=== PATIENT | female | born 1955 | race Caucasian/White ===

== ENCOUNTER → 2023-08-17 06:55 | Outpatient (REF) | payer OTHER, SELFPAY | LOC: MRI 3T 06:55 | PROVIDERS: ATTENDING PHYSICIAN Physician Assistant; FAMILY PHYSICIAN Family Medicine | DX: M54.14 Radiculopathy, thoracic region (principal) | CPT/HCPCS: 72146 ==

== ENCOUNTER → 2023-09-24 07:03 | Outpatient (REF) | payer OTHER, SELFPAY | LOC: WDC 07:03 | PROVIDERS: ATTENDING PHYSICIAN Surgery; FAMILY PHYSICIAN Family Medicine | DX: Z12.31 Encounter for screening mammogram for malignant neoplasm of breast (principal) | CPT/HCPCS: 77063; 77067 ==

== ENCOUNTER → 2023-10-12 07:52 | Outpatient (REF) | payer OTHER, SELFPAY | LOC: WDC 07:52 | PROVIDERS: ATTENDING PHYSICIAN Surgery | DX: R92.2 Inconclusive mammogram (principal) | CPT/HCPCS: 76641 ==

== ENCOUNTER → 2023-12-27 12:51 | Outpatient (REF) | payer OTHER, SELFPAY | LOC: RAD 12:51 | PROVIDERS: ATTENDING PHYSICIAN Family Medicine | DX: M79.89 Other specified soft tissue disorders (principal) | CPT/HCPCS: 93970 ==

== ENCOUNTER → 2023-12-31 09:00 | Outpatient (REF) | payer SELFPAY | LOC: HWRAD 09:00 | PROVIDERS: ATTENDING PHYSICIAN Internal Medicine Cardiovascular Disease; FAMILY PHYSICIAN Family Medicine | DX: E78.00 Pure hypercholesterolemia, unspecified (principal) | CPT/HCPCS: 75571 ==

== ENCOUNTER → 2024-01-12 12:36 | Outpatient (REF) | payer OTHER, SELFPAY | LOC: PAVMRI 12:36 | PROVIDERS: ATTENDING PHYSICIAN Psychiatry & Neurology Neurology; FAMILY PHYSICIAN Family Medicine | DX: G43.711 Chronic migraine without aura, intractable, with status migrainosus (principal) | CPT/HCPCS: 70553; A9575 ==

== ENCOUNTER → 2024-03-06 07:31 | Outpatient (REF) | payer OTHER, SELFPAY | LOC: HWRAD 07:31 | PROVIDERS: ATTENDING PHYSICIAN Internal Medicine Hematology & Oncology; FAMILY PHYSICIAN Student in an Organized Health Care Education/Training Program | DX: M81.0 Age-related osteoporosis without current pathological fracture (principal) | CPT/HCPCS: 77080 ==

== ENCOUNTER → 2024-09-29 07:06 | Outpatient (REF) | payer OTHER, SELFPAY | LOC: WDC 07:06 | PROVIDERS: ATTENDING PHYSICIAN Surgery; FAMILY PHYSICIAN Student in an Organized Health Care Education/Training Program | DX: Z12.31 Encounter for screening mammogram for malignant neoplasm of breast (principal); Z85.3 Personal history of malignant neoplasm of breast; C50.412 Malignant neoplasm of upper-outer quadrant of left female breast | CPT/HCPCS: 77063; 77067 ==

== ENCOUNTER 2025-01-04 21:34 | Emergency (ER) | payer OTHER, SELFPAY ==
[2025-01-04 21:35] VITALS: BP 153/92
[2025-01-04 21:49] LABS: Hematocrit 37.5 % (37.0-47.0); Hemoglobin 12.6 g/dL (12.0-16.0); Mean Corp Hgb Conc. 33.6 g/dL (33.0-37.0); Mean Corpuscular Volume 89.5 fL (81.0-99.0); Nucleated Red Blood Cells % 0 %; Platelet Count 254 10^3/uL (130-400); Red Cell Dist. Width 12.5 % (11.5-14.5)
[2025-01-04 22:11] LABS: ALT (SGPT) 22 U/L (0-35); AST (SGOT) 30 U/L (14-36); Albumin 4.2 g/dl (3.5-5.0); Alkaline Phosphatase 62 U/L (38-126); Blood Urea Nitrogen 18 mg/dl (7-17); Calcium 9.5 mg/dl (8.4-10.2); Carbon Dioxide 25 mmol/L (22-30); Chloride 107 mmol/L (98-107); Glucose 127 mg/dl (70-99); Potassium 3.8 mmol/L (3.5-5.1); Sodium 139 mmol/L (135-145); Total Protein 7.3 g/dl (6.3-8.2); eGFR > 60.00
[2025-01-04 23:05] VITALS: BP 148/80
[2025-01-04 23:06] VITALS: BMI 27.1
[2025-01-04] MEDS: OMNIPAQUE 50 ML PO (23:50)
[2025-01-04] MEDS: NSS 1000 IV (23:52)
[2025-01-05 00:36] VITALS: BP 163/75
--- NOTE | 2025-01-05 00:56 | ED.GENMED ---
History of Present Illness
General
Chief Complaint: Abdominal Symptoms
Source: patient and spouse
Exam Limitations: none
Time Seen by Provider: 01/04/25 23:06
Nursing documentation reviewed up to this point in time: agreed with
History of Present Illness
History of Present Illness:
69-year-old female past medical history of previous C. difficile 2 years ago. Being treated for diverticulitis with ciprofloxacin and Flagyl presenting to the emergency department today with concerns of nausea diarrhea abdominal pain progressing
over the past week. Started taking Augmentin last week for possible sinus infection. 2 days into the treatment she noticed diarrhea and abdominal cramping which has been persisting. She has had very loose bowel movements over the past few days.
Denies any fevers chest pain or shortness of breath. Nausea but no vomiting.
Past History
Past History
ED Past Medical History: Hypothyroidism (Status post radioablation for Graves' disease ), Other (Migraine headaches ) and Other (Irritable bowel syndrome: Diverticulosis, anemia )
Social History
Tobacco: Non-smoker
Alcohol: Occasional
Personal:
Living: with family
Family History
Family History: Negative Diabetes, Hypertension, Early CAD, Asthma or Cancer
Review of Systems
Review of Systems
Allergies reviewed?: Yes
All Other Systems: ROS reviewed and negative except as documented in HPI and ROS
Phy Exam
Physical Exam
Physical Exam:
GENERAL: Alert , in no apparent distress
EYE: pupils equal and reactive
NECK: Supple, no significant adenopathy.
ENT: o/p clr, mmm.
CARDIAC: Regular rate and rhythm .
LUNGS: Clear breath sounds bilaterally, no acute respiratory distress, no wheezes/rales/rhonchi
ABDOMEN: Left-sided abdominal pain to palpation
NEUROLOGICAL: Alert and oriented, no focal neuro deficits
SKIN: Warm and dry, skin intact.
MUSCULOSKELETAL: No edema, well perfused.
PSYCH: Normal and appropriate interaction.
Course
Orders/Labs/Results
Orders:
Orders
01/04/25 21:43
Complete Blood Count/With Diff Urgent
Comprehensive Metabolic Panel Urgent
01/04/25 23:39
Urinalysis Reflex To Culture Urgent
Date Specimen was Collected: 01/05/25
Time Specimen was Collected: 00:40
Iohexol [Omnipaque] See Protocol PO NOW STA
01/04/25 23:40
0.9% Sodium Chloride 1000 ml [Nss] 1,000 ml IV BOLUS
01/05/25
CT Abd/pel W Iv And Oral Contr Urgent
Reason For Exam: llq pain
01/05/25 00:56
C DIFF [C difficile Antigen & Toxins] Urgent
[facility]OC Source: Feces/Stool
Specimen Description:
Stool Culture Urgent
[facility] Source: Feces/Stool
Specimen Description:
Abnormal Lab Results
01/04/25
21:43
RBC 4.19 L 10^6/uL
(4.20-5.40)
Monocytes % 10.5 H %
(1.7-9.3)
BUN 18 H mg/dl
(7-17)
Glucose 127 H mg/dl
(70-99)
01/04/25 21:43
01/04/25 21:43
Vital Signs
Initial and Last Documented VS:
Initial Vital Signs
Temp Pulse Resp BP Pulse Ox
97.8 F 85 20 153/92 95
01/04/25 21:35 01/04/25 21:35 01/04/25 21:35 01/04/25 21:35 01/04/25 21:35
Last Documented Vital Signs
Temp Pulse Resp BP Pulse Ox
97.8 F 85 20 145/70 96
01/04/25 21:35 01/04/25 21:35 01/04/25 21:35 01/05/25 03:26 01/05/25 03:26
MDM/Problems Addressed
MDM/Problems Addressed:
69-year-old female presenting to the emergency department today with concerns of abdominal cramping and diarrhea over the past week or so. Seem to occur after receiving Augmentin for sinus infection. On arrival blood pressure elevated otherwise
vital signs are normal. Afebrile does have reproducible pain to the left lower quadrant.
*Pulse Oximetry
SaO2: 97
Oxygen Mode of Delivery: Room air
Patient hypoxic: no (96)
*Critical Care Note
Total Time (30-74mins, 75-104mins- exclusive of procedures): Not Applicable
ED Attending Note
-
Portions of this chart may have been created with voice recognition software.� Occasional wrong word or��sound alike� substitutions may have occurred due to the inherent limitations of voice recognition software.
Discharge Plan
Departure
Patient Disposition: Home (Routine Discharge)
Date of Disposition: 01/05/25
Time of Disposition: 05:19
Patient with high blood pressure during this ER visit?: No
Condition: Good
Covid-19: Not Applicable
Discharge Problem:
Diarrhea
Instructions: Diarrhea in teens and adults
Prescriptions:
New
dicyclomine 20 mg tablet
20 mg PO QID PRN (Reason: constipation) Qty: 7 0RF
No Action
multivitamin [Multi-Day] 1 EACH tablet
1 ea PO DAILY
sumatriptan succinate [Imitrex] 100 MG tablet
100 mg PO [id number] PRN (Reason: migraines)
levothyroxine 88 MCG tablet
66 mcg PO MOTUWETHFRSA
montelukast 10 MG tablet
10 mg PO DAILY
albuterol sulfate [Proventil HFA] 90 MCG/PUFF HFA aerosol inhaler
2 puff inhalation PRN PRN (Reason: asrhma)
estradiol [Vagifem] 10 MCG tablet
10 mcg PO .TWICE A WEEK
valacyclovir 1,000 MG tablet
2,000 mg PO PRN PRN (Reason: cold sores)
calcium carbonate [Antacid (calcium carbonate)] 1 TABLET tablet,chewable
1,000 mg PO DAILY
cholecalciferol (vitamin D3) [Vitamin D3] 400 UNITS tablet
400 units PO DAILY
Vitamin C
1 tab PO DAILY
topiramate 25 MG tablet
75 mg PO DAILY
levothyroxine 88 MCG tablet
44 mcg PO GODOY
loratadine 10 MG tablet
10 mg PO DAILY
tramadol 100 MG tablet
100 mg PO BIDPRN PRN (Reason: pain>4/10) Qty: 20 0RF
Rx Instructions:
take with food
Referrals:
Lucy Daigle MD, Resident [Family Provider, General]
Activity Restrictions/Additional Instructions:
You came to the emergency department today with concerns of ongoing diarrhea. Here you have a reassuring assessment. Your CT scan without emergent findings. Please send a stool culture if symptoms are persisting. Return for any worsening, new or
concerning symptoms. In the meantime please take Bentyl to help with symptoms 1 tab every 8 hours as well as using Imodium 2 tabs initially and 1 tab every 8 hours as needed.
Interventions
Interventions:
*Risk Screen - Suicide Last Done: 01/04/25 21:35
*General Assessment Last Done: 01/04/25 21:35
*Neglect/Abuse Screening Last Done: 01/04/25 21:35
*ED- Fall Risk Assessment Last Done: 01/04/25 23:06
*ED COVID-19 Vaccine History Last Done: 01/04/25 21:35
OF-Azflgn-Olezuaqwfs Assessment Last Done: 01/04/25 23:06
Discharge Date and Time
Print Language: LITHUANIAN
[2025-01-05 00:57] LABS: Urine Character Clear (Clear)
[2025-01-05 03:26] VITALS: BP 145/70
== END 2025-01-05 05:41 | disposition home or self-care (01) ==
LOC: EMR 21:34
PROVIDERS: Emergency Medicine; Physician Assistant; EMERGENCY PHYSICIAN Student in an Organized Health Care Education/Training Program; FAMILY PHYSICIAN Student in an Organized Health Care Education/Training Program
DX: R19.7 Diarrhea, unspecified (principal); K58.9 Irritable bowel syndrome, unspecified; E03.9 Hypothyroidism, unspecified; G43.909 Migraine, unspecified, not intractable, without status migrainosus
CPT/HCPCS: 99284; 96360; 74177; 80053; 81003; 85025; Q9967

== ENCOUNTER → 2025-01-19 08:48 | Outpatient (REF) | payer OTHER, SELFPAY | LOC: WDC 08:48 | PROVIDERS: ATTENDING PHYSICIAN Surgery; FAMILY PHYSICIAN Student in an Organized Health Care Education/Training Program | DX: C50.412 Malignant neoplasm of upper-outer quadrant of left female breast (principal); Z85.3 Personal history of malignant neoplasm of breast; R92.2 Inconclusive mammogram | CPT/HCPCS: 76641 ==

== ENCOUNTER → 2025-04-05 07:39 | Outpatient (REF) | payer OTHER, SELFPAY | LOC: HWEVLT 07:39 | PROVIDERS: ATTENDING PHYSICIAN Radiology Diagnostic Radiology | DX: I83.893 Varicose veins of bilateral lower extremities with other complications (principal) | CPT/HCPCS: 93970 ==

== ENCOUNTER 2025-04-24 07:48 | Emergency (ER) | payer OTHER, SELFPAY ==
[2025-04-24 07:53] VITALS: BP 166/88
--- NOTE | 2025-04-24 08:40 | ED.GENMED ---
History of Present Illness
General
Chief Complaint: Dizziness
Source: patient
Exam Limitations: none
Time Seen by Provider: 04/24/25 08:00
Nursing documentation reviewed up to this point in time: agreed with
History of Present Illness
History of Present Illness:
69-year-old female presenting to the emergency room today with concerns of initially right lower quadrant abdominal pain that woke her from her sleep a few hours prior to arrival. Progressive pain to the right lower quadrant. Does have an appendix
has had hernias in the past. Denies any changes in bowel movements nausea or vomiting. Does additionally have room spinning dizziness that occurred after standing. Seems to be improvement sitting still. Made worse with head movement quick change
of positioning. She also claims that her heart rate was somewhat elevated at home. She denies any specific chest pain shortness of breath nausea vomiting or any recent illness. No fevers.
Past History
Past History
ED Past Medical History: Hypothyroidism (Status post radioablation for Graves' disease ), Other (Migraine headaches ) and Other (Irritable bowel syndrome: Diverticulosis, anemia )
Social History
Tobacco: Non-smoker
Alcohol: Occasional
Personal:
Living: with family
Family History
Family History: Negative Diabetes, Hypertension, Early CAD, Asthma or Cancer
Review of Systems
Review of Systems
Allergies reviewed?: Yes
All Other Systems: ROS reviewed and negative except as documented in HPI and ROS
Phy Exam
Physical Exam
Physical Exam:
GENERAL: Alert , in no apparent distress
EYE: Reproducible horizontal nystagmus with quick head movement and change in positioning, pupils equal and reactive
NECK: Supple, no significant adenopathy.
ENT: o/p clr, mmm.
CARDIAC: Regular rate and rhythm .
LUNGS: Clear breath sounds bilaterally, no acute respiratory distress, no wheezes/rales/rhonchi
ABDOMEN: Soft, without focal tenderness, no r/g, no cvat
NEUROLOGICAL: Alert and oriented, no focal neuro deficits 5 out of 5 upper and lower extremity strength normal palpating bilaterally normal finger-nose and heel light no pronator drift
SKIN: Warm and dry, skin intact.
MUSCULOSKELETAL: No edema, well perfused.
PSYCH: Normal and appropriate interaction.
Course
Orders/Labs/Results
Orders:
Orders
04/24/25 07:59
Electrocardiogram (*1) Urgent
Reason for Study: Vertigo / Dizzy
EKG- Treatment ONCE
04/24/25 08:29
CT Abd/Pel (IV only)-DH only Urgent
Comment:
Reason For Exam: RLQ pain
CT Head W/o Iv Contrast Urgent
Comment:
Reason For Exam: dizziness/off balance
0.9% Sodium Chloride 1000 ml [Nss] 1,000 ml IV BOLUS
Pt Eval And Treat Urgent
Treatment: vestibular, can assess prior to CT
Activity Level: Ambulate
04/24/25 08:30
EKG- Treatment ONCE
04/24/25 09:01
Complete Blood Count/With Diff Urgent
Comprehensive Metabolic Panel Urgent
04/24/25 09:39
Urinalysis Reflex To Culture Urgent
Date Specimen was Collected: 04/24/25
Time Specimen was Collected: 09:35
Abnormal Lab Results
04/24/25
09:01
WBC 4.1 L 10^3/uL
(4.8-10.8)
Absolute Lymphs (auto) 1.1 L 10^3/uL
(1.2-3.4)
Monocytes % 9.4 H %
(1.7-9.3)
04/24/25 09:01
04/24/25 09:01
Vital Signs
Initial and Last Documented VS:
Initial Vital Signs
Temp Pulse Resp BP Pulse Ox
97.5 F 74 18 166/88 98
04/24/25 07:53 04/24/25 07:53 04/24/25 07:53 04/24/25 07:53 04/24/25 07:53
Last Documented Vital Signs
Temp Pulse Resp BP Pulse Ox
97.5 F 59 22 171/86 96
04/24/25 07:53 04/24/25 11:40 04/24/25 11:05 04/24/25 10:49 04/24/25 10:49
MDM/Problems Addressed
MDM/Problems Addressed:
69-year-old female presenting to the emergency department today with concerns of room spinning dizziness as well as right lower quadrant abdominal pain starting this morning. On arrival hypertensive otherwise vital signs are normal. Reducible
dizziness head movement and change positioning consistent with likely peripheral vertigo. Normal neurologic evaluation otherwise. Does have reproducible pain to the right lower quadrant thus a CT scan was ordered. CT scan of the head without
emergent pathology as well as CT of the abdomen. Here symptoms are improved she is able to ambulate with steady gait patient in no distress. Patient advised for close outpatient follow-up. Return precautions given.
*Pulse Oximetry
SaO2: 98
Oxygen Mode of Delivery: Room air
Patient hypoxic: no (96)
*Critical Care Note
Total Time (30-74mins, 75-104mins- exclusive of procedures): Not Applicable
ED Attending Note
-
Portions of this chart may have been created with voice recognition software.� Occasional wrong word or��sound alike� substitutions may have occurred due to the inherent limitations of voice recognition software.
Discharge Plan
Departure
Patient Disposition: Home (Routine Discharge)
Date of Disposition: 04/24/25
Time of Disposition: 13:33
Patient with high blood pressure during this ER visit?: No
Condition: Good
Covid-19: Not Applicable
Discharge Problem:
Abdominal pain, Dizziness
Instructions: Vertigo (a Type of Dizziness) (DC)
Prescriptions:
New
meclizine 25 mg tablet
25 mg PO BID PRN (Reason: dizziness) Qty: 7 0RF
No Action
multivitamin [Multi-Day] 1 EACH tablet
1 ea PO DAILY
sumatriptan succinate [Imitrex] 100 MG tablet
100 mg PO [id number] PRN (Reason: migraines)
levothyroxine 88 MCG tablet
66 mcg PO MOTUWETHFRSA
montelukast 10 MG tablet
10 mg PO DAILY
albuterol sulfate [Proventil HFA] 90 MCG/PUFF HFA aerosol inhaler
2 puff inhalation PRN PRN (Reason: asrhma)
estradiol [Vagifem] 10 MCG tablet
10 mcg PO .TWICE A WEEK
valacyclovir 1,000 MG tablet
2,000 mg PO PRN PRN (Reason: cold sores)
calcium carbonate [Antacid (calcium carbonate)] 1 TABLET tablet,chewable
1,000 mg PO DAILY
cholecalciferol (vitamin D3) [Vitamin D3] 400 UNITS tablet
400 units PO DAILY
Vitamin C
1 tab PO DAILY
topiramate 25 MG tablet
75 mg PO DAILY
levothyroxine 88 MCG tablet
44 mcg PO GODOY
loratadine 10 MG tablet
10 mg PO DAILY
dicyclomine 20 mg tablet
20 mg PO QID PRN (Reason: constipation) Qty: 7 0RF
tramadol 100 MG tablet
100 mg PO BIDPRN PRN (Reason: pain>4/10) Qty: 20 0RF
Rx Instructions:
take with food
Referrals:
Lucy Daigle MD, Resident [Family Provider, General]
Activity Restrictions/Additional Instructions:
You came to the emergency department today with concerns of abdominal pain as well as dizziness. Here due to reassuring assessment. Please take prescribed indication of follow-up closely as an outpatient. Please return to the ER for any
progressive or worsening symptoms.
Interventions
Interventions:
*General Assessment Last Done: 04/24/25 07:53
*Neglect/Abuse Screening Last Done: 04/24/25 07:53
*ED COVID-19 Vaccine History Last Done: 04/24/25 09:07
*ED Influenza Vaccine History Last Done: 04/24/25 09:07
[facility] Fall Risk Assessment Tool Last Done: 04/24/25 09:05
ED- Neurological Assessment Last Done: 04/24/25 12:07
Discharge Date and Time
Print Language: HAITIAN
[2025-04-24 08:53] VITALS: BMI 25.2
[2025-04-24] MEDS: NSS 1000 IV (09:00)
[2025-04-24 09:06] VITALS: BP 160/91
[2025-04-24 09:13] LABS: Hematocrit 39.4 % (37.0-47.0); Hemoglobin 13.2 g/dL (12.0-16.0); Mean Corp Hgb Conc. 33.5 g/dL (33.0-37.0); Mean Corpuscular Volume 89.7 fL (81.0-99.0); Nucleated Red Blood Cells % 0 %; Platelet Count 210 10^3/uL (130-400); Red Cell Dist. Width 13.5 % (11.5-14.5)
[2025-04-24 09:35] LABS: ALT (SGPT) 31 U/L (0-35); AST (SGOT) 36 U/L (14-36); Albumin 4.3 g/dl (3.5-5.0); Alkaline Phosphatase 67 U/L (38-126); Blood Urea Nitrogen 13 mg/dl (7-17); Calcium 9.5 mg/dl (8.4-10.2); Carbon Dioxide 27 mmol/L (22-30); Chloride 107 mmol/L (98-107); Estimated Creatinine Clearance 63 ml/min; Glucose 94 mg/dl (70-99); Potassium 3.9 mmol/L (3.5-5.1); Sodium 140 mmol/L (135-145); Total Protein 7.6 g/dl (6.3-8.2); eGFR > 60.00
[2025-04-24 09:39] VITALS: BP 170/84
[2025-04-24 09:52] LABS: Urine Character Clear (Clear)
[2025-04-24 10:49] VITALS: BP 171/86
[2025-04-24 11:15] VITALS: BP 171/86; PULSE 74; O2SAT 98
[2025-04-24] MEDS: ANTIVERT 12.5 MG PO (13:40)
== END 2025-04-24 13:54 | disposition home or self-care (01) ==
LOC: EMR 07:48
PROVIDERS: Physician Assistant; EMERGENCY PHYSICIAN Emergency Medicine; FAMILY PHYSICIAN Student in an Organized Health Care Education/Training Program
DX: R10.31 Right lower quadrant pain (principal); R42 Dizziness and giddiness; K58.9 Irritable bowel syndrome, unspecified; E03.9 Hypothyroidism, unspecified
CPT/HCPCS: 96360; 99284; 70450; 74177; 80053; 81003; 85025; 93005; Q9967